=== PATIENT | female | born 1980 | race Caucasian/White ===

== ENCOUNTER → 2017-03-11 13:18 | Outpatient (CLI) | payer MEDICAID | END | disposition home or self-care (01) | LOC: D.US 13:18 | DX: T75.89XA Other specified effects of external causes, initial encounter (principal) ==

== ENCOUNTER 2017-10-14 17:33 | Emergency (ER) | payer MEDICAID ==
[2017-10-14 18:52] LABS: APPEARANCE CLEAR (CLEAR); BILIRUBIN NEGATIVE (NEGATIVE); COLOR YELLOW (YELLOW); GLUCOSE NEGATIVE (NEGATIVE); KETONE NEGATIVE (NEGATIVE); NITRITE NEGATIVE (NEGATIVE); PROTEIN NEGATIVE (NEGATIVE); SPECIFIC GRAVITY 1.005 (1.005-1.020); UROBILINOGEN NORMAL (NORMAL)
[2017-10-14 18:56] LABS: HCG SERUM NEGATIVE (NEGATIVE)
== END 2017-10-14 21:15 | disposition home or self-care (01) ==
LOC: D.ER 17:33
PROVIDERS: Family Medicine
DX: S29.012A Strain of muscle and tendon of back wall of thorax, initial encounter (principal); X50.9XXA Other and unspecified overexertion or strenuous movements or postures, initial encounter; Y93.89 Activity, other specified; Y92.019 Unspecified place in single-family (private) house as the place of occurrence of the external cause